=== PATIENT | female | born 1965 | race Two or more races ===

== ENCOUNTER 2016-09-21 14:39 | Emergency (ER) | payer SELFPAY ==
--- NOTE | ~2016-09-21 | CT4 ---
[facility] A Service of [facility] RADIOLOGY TEXT RESULTS PATIENT: SUE ROMEO LOCATION: SED : 67 UNIT #: [id number] AGE: [address]: Sofie Washington MD SEX: F ORDER DR: [id number] [address] [address] [id number] MR#: [id number] Acc #: [id number] NAME: SUE ROMEO : 1965 SEX: F STUDY DATE/TIME: 09/21/2016 15:26 UNIT: SED ROOM: STUDY DESCRIPTION: CT Abd and Pelv Wo Cont Attending Physician: Sofie Washington M.D. Ordering Physician: Sofie Washington M.D. Primary Care Physician: No Primary Care Physician MEDICAL IMAGING REPORT This report is preliminary unless electronic signature is present. EXAM CT of the abdomen and pelvis without contrast. INDICATIONS Diarrhea and abdominal pain for 4 days. Pain in the early abdomen. TECHNIQUE CT of the abdomen and pelvis was performed without contrast. Coronal and sagittal reformatted images were obtained. This CT exam was performed with one or more of the following radiation dose reduction techniques: automatic exposure control, adjustment of mA and/or kV according to patient size, and iterative reconstruction. COMPARISON Comparison is made with 06/03/2015. FINDINGS Minimal scarring or atelectasis in the lung bases. The liver is unremarkable. The gallbladder is unremarkable. The spleen is unremarkable. The kidneys are unremarkable. The adrenal glands are unremarkable. Pancreas is unremarkable. PELVIS: The appendix is thickened and measures about 1 cm in greatest thickness, however, this has been seen on the patient's previous to studies dating back to August of 2014 and the appendix is essentially unchanged. There is no evidence for any fluid around the appendix or any inflammatory stranding. The colon is unremarkable. Multiple uterine fibroids are again noted. No free fluid. The bone windows are unremarkable. IMPRESSION 1. There are no definite acute abnormalities. 2. Redemonstrated is some thickening of the appendix at the base [facility] A Service of [facility] RADIOLOGY TEXT RESULTS PATIENT: SUE ROMEO LOCATION: SED : 67 UNIT #: [id number] AGE: [address]: Sofie Washington MD SEX: F ORDER DR: measuring up to 1 cm. This is unchanged from the patient's previous two studies dating back to 2 years from now. There is no adjacent inflammatory change or fluid and I suspect this represents the patient's normal anatomy. Correlate with the patient's history, location of pain and any presence of fever or white count. 3. Stable multiple uterine fibroids. 4. Gallbladder is somewhat contracted but otherwise unremarkable. 5. No evidence for bowel obstruction. Dictated by... Tomy Craig M.D. THIS IS AN ELECTRONICALLY VERIFIED REPORT Tomy Craig M.D. at 09/23/2016 12:10 PM Netta TD: 09/21/2016 19:15 JOB #: [id number] MEDICAL IMAGING REPORT Page 1 of 1
[~2016-09-21 14:39] MED LIST: ALBUTEROL17 GM INH; AMOXIL500 M1 PO; DAY QUIL PO; DECADRON PO; FLAGYL PO; FLEXERIL10 M1 PO; MEDROL4 MG/DOSE- PO; METRONIDAZOLE PO; NAPROXEN PO; NO MEDICATIONS; PRILOSEC; PRILOSEC PO; TYLENOL #3 PO; VOLTAREN75 MG PO; ZANTAC150 MG PO; ZOFRAN ODT4 MG PO; ZOFRAN PO; [UNRECOGNIZED DRUG - MIXTURE] PO
[2016-09-21 15:26] LABS: BASOPHIL% 0.6 % (0-2.5); EOSINOPHIL# 0.1 X10e3 (0-0.7); EOSINOPHIL% 1.8 % (0.0-7.0); HEMATOCRIT 39.6 % (35.0-45.0); HEMOGLOBIN 13.2 gm/dL (12.0-16.0); LYMPHOCYTE# 1.8 X10e3 (1.0-3.5); LYMPHOCYTE% 28.8 % (17.0-45.0); MEAN CELL VOLUME 85.7 FL (83-96); MEAN CORPUSCULAR HEMOGLOBIN 28.5 PG (28-34); MEAN CORPUSCULAR HGB CONC 33.3 g/dL (30-36); MEAN PLATELET VOLUME 8.2 FL (6.5-11.5); MONOCYTE# 0.6 X10e3 (0-1.0); MONOCYTE% 9.6 % (3.0-12.0); NEUTROPHIL# 3.6 X10e3 (1.5-7.1); NEUTROPHIL% 59.2 % (40-75); PLATELET COUNT 236 X10e3 (140-420); RED BLOOD COUNT 4.62 X10e (3.90-5.30); RED CELL DISTRIBUTION WIDTH 14.4 % (11.0-15.5); WHITE BLOOD COUNT 6.1 X10e3 (4.0-10.5)
[2016-09-21 15:27] LABS: DIFF IND NO
[2016-09-21 15:42] LABS: ALBUMIN SERUM 3.7 g/dL (3.5-5.0); BILIRUBIN, DIRECT 0.1 mg/dL (0.0-0.2); BILIRUBIN,INDIRECT 0.1 mg/dL (0.0-0.9); BILIRUBIN,TOTAL 0.2 mg/dL (0.2-2.0); BUN/CREATININE RATIO 18.33; CALCIUM SERUM 8.5 mg/dL (8.4-10.2); CREATININE SERUM 0.6 mg/dL (0.6-1.4); GLOM FILT RATE Estimated 106.3 mL/min (>60); POTASSIUM 3.2 mmol/L (3.5-5.1); PROTEIN TOTAL SERUM 7.3 g/dL (6.0-8.3)
== END 2016-09-21 16:42 | disposition home or self-care (01) ==
LOC: SED 14:39
PROVIDERS: Student in an Organized Health Care Education/Training Program
DX: K52.89 Other specified noninfective gastroenteritis and colitis (principal); K21.9 Gastro-esophageal reflux disease without esophagitis; Z98.51 Tubal ligation status
CPT/HCPCS: 36415; 74176; 80048; 80076; 82150; 83690; 85025; 96374; 96375; 99284; C9113; J2405